=== PATIENT | female | born 1990 | race Caucasian/White ===

== ENCOUNTER → 2018-05-31 12:34 | Observation (INO) ==
[2018-05-31 05:22] LABS: Amphetamine Screen,Urine Negative ng/mL (Cutoff=1000); Barbiturate Screen,Urine Negative ng/mL (Cutoff=200); Benzodiazepines Screen,Urine Negative ng/mL (Cutoff=200); Cannabinoid Screen,Urine Negative ng/mL (Cutoff = 50); Cocaine Screen,Urine Negative ng/mL (Cutoff= 300); Opiate Screen,Urine Negative ng/mL (Cutoff=300); Phencyclidine Screen,Urine Negative ng/mL (Cutoff=25)
--- NOTE | 2018-05-31 07:03 | OB/GYN Progress Note ---
Date of Encounter: 05/31/18 Time of Encounter: 07:01 - Assessment and Plan (1) False labor Current Visit: Yes Status: Acute SVE 2-3cm and unchanged x3 exams. Pt has had 1 liter LR. Will proceed with a second liter bolus. Plan for discharge home once contractions more tolerable. (2) 36 weeks gestation of Current Visit: Yes Status: Acute Subjective - Subjective Interval history: 27 year-old G1 presenting at 36 weeks gestation with c/o contractions that started around midnight. Upon arrival the contractions were every 1-2 minutes and her pain was an 8/10. She has since received Nubain and reports pain 4/10 with contractions. No leaking or bleeding. She doesn't feel like the contractions are less frequent but the appear less frequent on toco. SVE 2-3cm x3 exams. Antepartum ROS: movement normal, contractions, no loss of fluid, no vaginal bleeding Objective - Vital Signs Vital Signs: Intake and Output 05/30/18 05/30/18 05/31/18 15:59 23:59 07:59 Other: Weight 52.39 kg Patient Weight 05/31/18 23:59 Weight 52.39 kg - Exam FHR: category 1 FHR comments: 135 BPM reactive NST Auscultation: bilateral: normal Abdomen: Present: soft, gravid Cervical dilation: 2-3 per RN Cervix effacement: 80 station: -1
[2018-05-31 07:31] LABS: Bilirubin,Urine Negative (Negative); Blood,Urine Negative (Negative); Color,Urine Yellow (Yellow); Glucose,Urine (UA) Normal (Normal); Ketones,Urine 15 mg/dL (Negative); Leukocyte Esterase,Urine Negative (Negative); Nitrite,Urine Negative (Negative); Protein,Urine Negative (Neg-Trace); Specific Gravity,Urine 1.017 (1.010-1.025); Urobilinogen,Urine Normal (Normal)
[2018-05-31 07:49] LABS: Clarity,Urine Clear (Clear)
--- NOTE | 2018-05-31 10:00 | OB/GYN Progress Note ---
Date of Encounter: 05/31/18 Time of Encounter: 09:57 - Assessment and Plan (1) First in adolescent 16 years of age or older in third trimester Current Visit: Yes Status: Acute (2) labor in second trimester with delivery in third trimester Current Visit: Yes Status: Acute Patient will be given Procardia 10 mg 1 now. Observed if no further change will be discharged home Qualifiers: Fetus number: single or unspecified fetus Qualified Code(s): O60.13X0 - labor second trimester with delivery third trimester, not applicable or unspecified (3) Candidiasis of female genitalia Current Visit: Yes Status: Acute Prescription for Terconazole 7 will be given to the patient (4) 36 weeks gestation of Current Visit: Yes Status: Acute Subjective - Subjective Interval history: Patient is still having pain and allan every 2-3 minutes. She is exhausted has not slept in 2-3 days and is shaking from the exhaustion patient did not call the office to be reevaluated did not really know what was going on. Patient was 2-3 cm on admission she was reexamined is still 2-3 cm when we did a pelvic exam she is very tender to palpation speculum exam was performed the patient did have a thick white discharge that was noted wet mount performed did show candidiasis. Because she has not made any additional cervical change I recommended Procardia 10 mg 1 now giving her a Vicodin 5 mg prior to discharge for the pain and a prescription for 2, soft 7 cream patient be observed for another hour if no change noted will discharge home at that time. Antepartum ROS: contractions Objective - Vital Signs Vital Signs: Intake and Output 05/30/18 05/31/18 05/31/18 23:59 07:59 15:59 Other: Weight 52.39 kg Patient Weight 05/31/18 23:59 Weight 52.39 kg - Exam FHR: category 1 FHR comments: heart tones 140s reactive contractions every 2-3 minutes irregular Abdomen: Present: soft, gravid Uterus: Present: firm Cervical dilation: 2-3 Cervix effacement: 80 station: -2 Comments: Sterile speculum exam performed and the patient did reveal a thick white discharge positive for candidiasis on wet mount - Labs Labs: Abnormal lab results Urine Ketones 15 mg/dL (Negative) H 05/31/18 07:17
--- NOTE | 2018-05-31 12:11 | Event Note ---
Date of Encounter: 05/31/18 Time of Encounter: 12:09 Patient requesting evaluation prior to discharge. No change noted from Dr Whiteside's note. She states she is flushed and cramping. Flushing likely related to procardia - vitals WNL. Reactive NST. Cramping likely r/t yeast infection and multiple vaginal exams. Discussed potential for spotting after multiple exams. Zofran and [place] to be given prior to discharge - FOB present to drive. Patient to follow up in office with routine care as scheduled and PRN. POC per consult with Dr Whiteside.
[~2018-05-31 12:34] MED LIST: *HR* HYDROcodone/Acet 5/325 mg TABLET PO ONE; *HR* Nalbuphine 10 MG/ML AMPUL IV PRN; NIFEdipine 10 MG CAPSULE PO ONE; Ondansetron 4 MG/2 ML VIAL IVP ONE; Ondansetron 4 MG/2 ML VIAL ONE; Ringers Solution, Lactated 1,000 ML IVC ONE; Ringers Solution, Lactated 1,000 ML ONE
== END | disposition home or self-care (01) ==
LOC: 1NENULAB
PROVIDERS: ADMIT Registered Nurse; ATTEND Registered Nurse

== ENCOUNTER 2018-06-24 07:54 | Inpatient (IN) ==
--- NOTE | 2018-06-24 08:09 | OB/GYN History & Physical ---
Date of Encounter: 06/24/18 Time of Encounter: 08:06 Assessment and Plan (1) 39 weeks gestation of Current visit: Yes Status: Acute (2) Encounter for elective induction of labor Current visit: Yes Status: Acute will induce with cytotec po (3) First in adolescent 16 years of age or older in third trimester Current visit: No Status: Acute History of Present Illness HPI: Ms. Rodrigues is a 27 year old female 1 para 0 at 39-3/7 weeks by an 8- 4/7 week ultrasound who presented for induction of labor secondary to term with favorable cervix. Patient was 3 cm 0 station in the office last week has been having contractions on and off now for the past 2-3 weeks did advise when she got into the 39 week range we could go ahead and bring her in for an induction. She has been having occasional contractions nothing like she was having 3 weeks ago but she still feeling them. Denies any leaking of fluid no vaginal bleeding no vaginal discharge. Patient had an ultrasound 3 weeks ago baby weighed 2936 g and MARINE was 15 cm. Patient is GBS negative, A+, rubella positive, Varicella positive Past Med Surg Social Fam HX - Past Medical History Source: patient, old records reviewed Medical history: no medical history Psychiatric history: no psych history - Past Surgical History Additional surgical history: left breast biopsy - Social History Smoking Status: Never smoker Smokeless Tobacco Status: No Alcohol use: none Drug use: none Occupational status: employed Current living situation: Home - Independent Activity Level: Independent ambulation Recent Out of Country Travel Within the Last 8 Weeks: No Exposure or Possible Exposure to Illness During Travel: No - Family History Sister Adopted: No Family Member Ethnicity: Non- Living Status: Still Living Hx Family Cardiac Disorders: No Hx Family Respiratory Disorders: No Hx Family Cancer: No Hx Family GI Disorders: No Hx Family Endocrine Disorder: No Hx Family Neuromuscular Disorders: No Hx Family Neurologic Disorders: No Hx Family HEENT Disorders: No Hx Family Autoimmune Disorders: No - Additional Family History Additional family history: Family history noncontributory at this time Obstetrical History - Pregnancies : 1 Para: 0 Medications and Allergies Vit #108/Iron/FA [ One Tablet] 1 each PO DAILY 06/01/17 [History] Unisom 11/25/17 [History] Vit B6/Me-Thfolate/Me-B12/Ala 11/25/17 [History] Allergy/AdvReac Type Severity Reaction Status Date / Time Amoxicillin [From Amoxil] Allergy Hives Verified 05/31/18 04:42 Review of System OB All systems PM: reviewed and no additional remarkable complaints except as stated Exam - Constitutional Constitutional: well developed, well nourished, no acute distress, thin - HEENT HEENT: EOMI, PERRL, Mucus Membranes Moist - Neck Neck exam: full ROM - Lungs Respiratory exam: CTAB - Cardiovascular Cardiovascular exam: RRR - Abdomen Abdomen: Present: bowel sounds normal, gravid ( heart tones 140s reactive occasional contractions seen) - Extremities Extremities exam: normal capillary refill - Vagina Vagina: Present: normal moisture - Cervix Dilation: 3 Effacement: 90 Station: 0 Results All other labs normal.
[2018-06-24] MEDS ORDERED: Naloxone 0.4 MG/ML INJ IVP PRN (08:16)
[2018-06-24] MEDS ORDERED: *HR* Nalbuphine 10 MG/ML AMPUL IVP PRN (08:16)
[2018-06-24] MEDS ORDERED: Ondansetron 4 MG/2 ML VIAL IVP PRN (08:16)
[2018-06-24] MEDS ORDERED: Famotidine 20 MG/2 ML VIAL IVP PRN (08:16)
[2018-06-24] MEDS ORDERED: miSOPROStol 25 MCG TABLET PO PRN (08:20)
[2018-06-24] MEDS ORDERED: Ringers Solution, Lactated 1,000 ML IVC SCH (08:30)
[2018-06-24 09:00] LABS: Basophils # 0.1 K/mcL (0.0-0.2); Basophils % 0.6 %; Eosinophils # 0.1 K/mcL (0.0-0.6); Hematocrit 34.5 % (35.3-44.9); Hemoglobin 11.3 g/dL (11.5-15.4); Immature Granulocytes % 0.7 % (0-4); Lymphocytes # 1.8 K/mcL (0.6-4.6); Lymphocytes % 20.3 %; Mean Corpuscular HGB Conc 32.8 g/dL (31.6-35.5); Mean Corpuscular Hemoglobin 29.4 pg (28.0-33.3); Mean Corpuscular Volume 89.8 fL (83.0-100.0); Monocytes # 0.7 K/mcL (0.0-1.3); Monocytes % 7.3 %; Neutrophils # 6.2 K/mcL (1.6-8.9); Platelet Count 227 K/mcL (140-400); Red Blood Count 3.84 M/mcL (3.82-4.97); Red Cell Distribution Width 13.3 % (11.5-14.5); Segmented Neutrophils % 70.1 %
[2018-06-24 09:04] LABS: Amphetamine Screen,Urine Negative ng/mL (Cutoff=1000); Barbiturate Screen,Urine Negative ng/mL (Cutoff=200); Benzodiazepines Screen,Urine Negative ng/mL (Cutoff=200); Cannabinoid Screen,Urine Negative ng/mL (Cutoff = 50); Cocaine Screen,Urine Negative ng/mL (Cutoff= 300); Opiate Screen,Urine Negative ng/mL (Cutoff=300); Phencyclidine Screen,Urine Negative ng/mL (Cutoff=25)
[2018-06-24] MEDS ORDERED: *HR* FentaNYL (PF) 100 MCG/2 ML VIAL EP ONE (09:35)
[2018-06-24] MEDS ORDERED: Bupivacaine-MPF 0.25% 10 ML VIAL EP ONE (09:35)
--- NOTE | 2018-06-24 09:35 | Anesthesia Evaluation PreOp ---
Addendum entered and electronically signed by Blue Juárez CRNA 06/25/18 01:47: Notified by L&D staff around 0050 of need for secondary to arrest of descent. ADÁN has been providing adequate labor analgesia. Explained to patient R/B/A of epidural anesthesia (plan A) vs. GA (plan B) and all questions answered. Patient verbalizes understanding and agrees to proceed. Confirmed NPO solids > 8hrs. VSS. Original Note: Date of Encounter: 06/24/18 Time of Encounter: 09:33 - Past History Planned Operation: ADÁN Cardiac History: Denies any Significant Hx Pulmonary History: Denies Any Significant HX LACROSSE COACH History: Denies Any Significant HX Other Medical History: Other (sciatica--chronic lower back pain w/ radiculopathy to BLEs) Anesthesia History: No Prior Anesthetic Complications (never had NA or GA; denies family h/o GA complications) : Yes Alcohol Use: none Drug use: none Medications and Allergies Vit #108/Iron/FA [ One Tablet] 1 each PO DAILY 06/01/17 [History] Unisom 11/25/17 [History] Vit B6/Me-Thfolate/Me-B12/Ala 11/25/17 [History] Allergy/AdvReac Type Severity Reaction Status Date / Time Amoxicillin [From Amoxil] Allergy Hives Verified 05/31/18 04:42 - Meds/Allergy Pre-op Review Medications Reviewed: Yes Allergies Reviewed: Yes Beta Blockers on Current Med List: No Anesthesia Results - Labs 06/24/18 08:36 Anesthesia Exam 138/86, HR 85 O2 Sat Height 1.6 m Height 1.6 m Weight 55.792 kg Weight 55.792 kg NPO (# of Hours): solids >3 hr Pain Scale: 0 Pain Scale Used: Numeric (1 - 10) - HEENT Pupil (Motor): Pupils equal Mallampati: II Teeth: Normal Oral Opening: Greater than 3 - LACROSSE COACH LOC: Oriented LACROSSE COACH Motor: Normal RUE, Normal LUE, Normal RLE, Normal LLE, Normal Face LACROSSE COACH Sensory: Normal: RUE, LUE, RLE, LLE, Face - Cardiac Rhythm: Regular Murmur: None - Pulmonary Breath Sounds: bilateral Clear Respiratory Effort: Symmetrical Anesthesia Assess/Plan ASA Score: 2 Level of consciousness: Cooperative, Oriented, Tranquil Anesthetic Plan: Epidural Autologous Blood: No Monitoring Plan: Standard Monitors Recovery Plan: Other
[2018-06-24] MEDS ORDERED: Lidocaine -MPF 1% 5 ML AMPUL ONE (09:39)
[2018-06-24] MEDS ORDERED: Epidural Premix (fent/bupiv) 110 ML EP SCH (09:45)
--- NOTE | 2018-06-24 14:27 | OB Labor Progress Note ---
Date of Encounter: 06/24/18 Time of Encounter: 14:26 Labor Progress Note - Subjective Subjective: Patient is getting uncomfortable recommending epidural - Cervix Cervix: 3/90/0 +1 buldging membranes - Heart Tones Heart Tones: heart tones 140s reactive - [place]: Contractions every 2 minutes - Interventions Interventions: we will get epidural the AROM
--- NOTE | 2018-06-24 15:31 | Anesthesia Procedures ---
Addendum entered and electronically signed by Blue Juárez CRNA 06/25/18 01:52: Infant Delivery Date & Time: 06/25/2018 @0135 Original Note: Date of Encounter: 06/24/18 Time of Encounter: 15:26 Procedures: Anesthesia - Epidural/Spinal Patient ID/Chart reviewed: Yes Patient examined: Yes OB Eval: Gestational age: 39 weeks 3 days OB Eval: : 1 OB Eval: Hx Para: 0 OB Eval: Contractions: Non-stressed pattern Consent Obtained: Yes Supplemental Oxygen: None/Room Air Site Prep: Aseptic Technique, Sterile prep and drape, Povidone-Iodine 1% Patient position: upright Local Anesthetic: Lidocaine 1% Amount of Local Anesthetic used: 3 Touhy Needle Gauge: 18 Touhy Needle Depth (cm): 4 Catheter Depth at Skin (cm): 9 Test Dose (1.5% Lido + Epi): Volume given (mls): 5 Test Dose Result: Negative Loading Dose: 0.25% Marcaine (mls): 5 Loading Dose: Fentanyl (mcg): 100 Loading Dose Administered: Thru Catheter Infusion Med: 0.125% Bupivacaine w/ 2 mcg/ml Fentanyl Infusion Rate (mls/hr): 12 (w/ demand bolus of 4mL q20min PRN) Catheter Secured in Place: Tegaderm, Tape Interspace Used: L4-L5 Loss of Resistance (ALBERT): Yes Blood: No CSF: No Paresthesia: No Procedure: successful on 1st attempt; patient very anxious during procedure; VSS Vitals + FHT's: see Monica LAGUERRE's electronic records for VS entry
--- NOTE | 2018-06-24 16:33 | OB Labor Progress Note ---
Date of Encounter: 06/24/18 Time of Encounter: 16:31 Labor Progress Note - Subjective Subjective: comfortable with epidural - Cervix Cervix: 4/80/-2 - Heart Tones Heart Tones: 130/minimal/-accels/-decels - [place]: q1-2 - Interventions Interventions: AROM for small amount of clear fluid - Plan Physician notified: No
--- NOTE | 2018-06-24 17:34 | OB Labor Progress Note ---
Date of Encounter: 06/24/18 Time of Encounter: 17:29 Labor Progress Note - Subjective Subjective: Patient still comfortable with her epidural - Cervix Cervix: 5/90-100/+1 - Heart Tones Heart Tones: heart tones 140s reactive - Demorest Demorest: IUPC placed contractions every 2 min. - Interventions Interventions: continue current care anticipate
[2018-06-24] MEDS ORDERED: Oxytocin 20 units/ LR 1000 mL 20 UNIT/1,000 ML BAG IVC ONE (19:43)
--- NOTE | 2018-06-24 19:48 | OB Labor Progress Note ---
Date of Encounter: 06/24/18 Time of Encounter: 19:47 Labor Progress Note - Subjective Subjective: Patient doing well epidural still working well - Cervix Cervix: 8/100/+2 - Heart Tones Heart Tones: heart tones 140s reactive - [place]: Contractions every 1-2 minutes - Interventions Interventions: Continue current care and anticipate vaginal delivery
--- NOTE | 2018-06-25 01:02 | OB Labor Progress Note ---
Date of Encounter: 06/25/18 Time of Encounter: 01:00 Labor Progress Note - Subjective Subjective: Patient has been pushing for approximately an hour and a half and head is not descending. There is significant amount of caput to the baby and significant amount of edema to the vaginal tissue. I did evaluate the patient and work with the patient I feel she is not a candidate for vacuum and I have highly recommended taking him back for primary low transverse section. - Cervix Cervix: complete/100/+2 significant caput noted - Heart Tones Heart Tones: Heart tones 140s reactive with variable decelerations occasionally with the contractions - [place]: Contractions every 2 minutes - Interventions Interventions: Consent has been signed for a section patient will be taken back as soon as possible
[2018-06-25] MEDS ORDERED: Clindamycin 900 MG/50 ML 900 MG/50 ML IV.SOLN IVPB ONE (01:03)
[2018-06-25] MEDS ORDERED: Lidocaine/EPI 1:200k 2% PF 20 ML VIAL ONE (01:04)
[2018-06-25] MEDS ORDERED: *HR* FentaNYL (PF) 100 MCG/2 ML VIAL ONE (01:05)
--- NOTE | 2018-06-25 01:10 | OB/GYN Procedure Note ---
Section - Date of procedure: 06/25/18 Preop diagnosis: other (Intrauterine at 39-3/7 weeks, arrest of descent, cephalopelvic disproportion) Post-op diagnosis: same (With persistent occiput posterior presentation) Procedure: primary low transverse Surgeon: Kalen Whiteside Quantitated Blood Loss: 500 Was there an hotel assistant general manager present: No Anesthesiologist: Blue Juárez Footwear Sales Representative: Margarito Cheney Anesthesia Type: Epidural section complications: none Disposition: L&D Recovery Room - (s) A Delivery Date: 06/25/18 Delivery Time: 01:35 Presentation: vertex Position: ROP Route of delivery: other ( section) Gender: Male Viability: Viable Pounds: 6 Ounces: 15 Gram Weight: 3.135 kg at 1 minute: 8 at 5 minutes: 9 Shoulder Dystocia: not encountered Specimens collected: cord blood Placenta: spontaneous - Narrative Narrative: Patient is a 27-year-old 1 para 0 at 39-3/7 weeks who presented for induction of labor secondary to term with favorable cervix. Patient has been 2-3 cm and head was at 0 station for the past 2-3 weeks recommended bring the patient in and inducing her. Patient did get Cytotec by mouth when she was allan epidural was placed she was artificially ruptured for clear fluid noted. Patient did progress to complete patient push for approximately 90 minutes without any significant descent of the head. She remained at the +2 station with significant amount of It formation on the baby and vaginal edema. I did not feel she was a candidate for vacuum assisted delivery and section was called. Procedure: Patient was taken the operating room where epidural anesthesia was found be adequate. She first the dorsal supine position with a leftward tilt prepped and draped in usual fashion. Timeout was then obtained. Pfannenstiel incision was made with a scalpel and carried down to the underlying tissue to the fascia was then applied. The fascia was nicked in midline extended laterally with Moreira scissors. The superior and inferior edges of the fascia grasped tented up and dissected rectus muscles. Rectus muscles were in midline parietal peritoneum was identified tented up and entered sharply. This was extended superiorly and inferiorly with Metzenbaum scissors. The bladder blade was inserted the vesicouterine peritoneum was identified tented up and entered sharply. This was extended laterally the bladder flap was created digitally. The lower uterine segment was incised with a scalpel and extended laterally digitally ablation. The 's head was noted to be in ROP presentation, I disengaged the head out of the pelvis and it was brought up through the incision then We delivered the infant, the cord was clamp and cut and was handed off to waiting pediatric team. Cord blood was collected placenta was then delivered continuously 3 vessel cord. Uterus was exteriorized cleaned of all clots and debris. The lower uterine segment was then closed using an 0 Vicryl in a running locking stitch by a 2 layer closure. Good hemostasis was noted the uterus was returned to the abdomen the gutters were cleaned of all clots and debris then copiously irrigated. No active bleeding was noted the fascia was closed using a #1 stratafix in a running stitch and the skin was closed using a 4-0 Vicryl in a subcuticular manner. All needles lap sponge counts were correct 3 she did receive preoperative antibiotics and a PRINEO dressing was applied at the end of the case. Patient tolerated the procedure well she was taken to the recovery room where she will be observed for 2 hrs before being taken to the floor
[2018-06-25] MEDS ORDERED: *HR* Oxytocin 10 UNIT/ML VIAL IM ONE (01:39)
[2018-06-25] MEDS ORDERED: *HR* Morphine 10 MG/ML VIAL ONE (01:40)
[2018-06-25] MEDS ORDERED: *HR* Morphine Sulfate/PF 10 MG/10 ML AMPUL ONE (01:41)
--- NOTE | 2018-06-25 01:47 | Anesthesia Progress Note ---
Date of Encounter: 06/25/18 Time of Encounter: 01:44
[2018-06-25] MEDS ORDERED: Naloxone 0.4 MG/ML INJ IVP PRN ×2 (02:08→04:37)
[2018-06-25] MEDS ORDERED: *HR* Promethazine 25 MG/ML VIAL IVP PRN (02:08)
[2018-06-25] MEDS ORDERED: Acetaminophen IV 1,000 MG/100 ML INFUS..BTL IVPB ONE (02:08)
[2018-06-25] MEDS ORDERED: Ondansetron 4 MG/2 ML VIAL IVP PRN ×2 (02:08→04:37)
--- NOTE | 2018-06-25 03:41 | Anesthesia Evaluation Post Op ---
Date of Encounter: 06/25/18 Time of Encounter: 03:39 - Vital Signs Vital Signs: 122/83, HR 100, RR14 - Lungs Lungs: Clear Ascult./Percussion - Airway Airway: Non-obstructed - Cardiovascular Regular Rate - Mental Status Mental Status: Alert & Oriented, Answers Appropriately - Pain Pain Scale: 0 Pain Scale used: Numeric (1 - 10) - Nausea Vomiting Nausea Vomiting: Not Present - Hydration Hydration: NPO, Kirby catheter - Discharge PostOp Status: Transfer Patient to floor
[2018-06-25] MEDS ORDERED: Ringers Solution, Lactated 1,000 ML IVC SCH (04:37)
[2018-06-25] MEDS ORDERED: Oxytocin 20 units/ LR 1000 mL 20 UNIT/1,000 ML BAG IVC SCH ×2 (04:37)
[2018-06-25] MEDS ORDERED: Sennosides 8.6 MG TABLET PO PRN (04:37)
[2018-06-25] MEDS ORDERED: Metoclopramide 10 MG/2 ML VIAL IVP PRN (04:37)
[2018-06-25] MEDS ORDERED: Simethicone 80 MG TAB.CHEW PO PRN (04:37)
[2018-06-25] MEDS: *HR* OxyCODONE/APAP 10/325 TABLET PO PRN (04:52)
[2018-06-25] MEDS: Ibuprofen 600 MG TABLET PO PRN ×3 (07:09→21:42)
[2018-06-25] MEDS ORDERED: IRON PO SCH (09:00)
[2018-06-25] MEDS ORDERED: PRENATAL VIT PO SCH (09:00)
[2018-06-25] MEDS ORDERED: [UNRECOGNIZED DRUG - OTHER] PO SCH (09:00)
[2018-06-25] MEDS: *HR* OxyCODONE/APAP 5/325 TABLET PO PRN ×2 (12:15→20:08)
[2018-06-26] MEDS: Ibuprofen 600 MG TABLET PO PRN ×3 (06:48→21:03)
[2018-06-26] MEDS: *HR* OxyCODONE/APAP 5/325 TABLET PO PRN (06:48)
[2018-06-26 07:49] LABS: Basophils # 0.1 K/mcL (0.0-0.2); Basophils % 0.3 %; Eosinophils # 0.1 K/mcL (0.0-0.6); Eosinophils % 0.6 %; Hematocrit 31.2 % (35.3-44.9); Hemoglobin 10.2 g/dL (11.5-15.4); Immature Granulocytes % 0.7 % (0-4); Lymphocytes # 1.6 K/mcL (0.6-4.6); Lymphocytes % 10.3 %; Mean Corpuscular HGB Conc 32.7 g/dL (31.6-35.5); Mean Corpuscular Hemoglobin 29.7 pg (28.0-33.3); Mean Corpuscular Volume 90.7 fL (83.0-100.0); Mean Platelet Volume 11.1 fL (9.4-12.4); Monocytes # 0.8 K/mcL (0.0-1.3); Platelet Count 233 K/mcL (140-400); Red Blood Count 3.44 M/mcL (3.82-4.97); Red Cell Distribution Width 13.7 % (11.5-14.5); Segmented Neutrophils % 83.1 %
[2018-06-26 07:53] LABS: Neutrophils # 12.6 K/mcL (1.6-8.9)
[2018-06-26] MEDS: Prenatal Vit/FA 1 EACH TABLET PO SCH (09:00)
[2018-06-26] MEDS ORDERED: Hydrocortisone 1% OINT 28 GM TUBE TP PRN (10:26)
--- NOTE | 2018-06-26 10:30 | OB/GYN Progress Note ---
Date of Encounter: 06/26/18 Time of Encounter: 10:28 - Assessment and Plan (1) S/P section Current Visit: Yes Status: Acute Hydrocortisone for itchy rash on abdomen. Ambulate in hallway today. Anticipate discharge home POD2-3. Subjective - Subjective Interval history: Pt reports incisional pain well controlled with PO medications. She reports itching on her abdomen. No other complaints. Patient reports: appetite normal, voiding normally, pain well controlled, ambulating normally : doing well Objective - Vital Signs Latest vital signs: Vital Signs Temp Pulse Resp BP Pulse Ox 06/26/18 07:45 98.0 F 94 16 121/90 06/25/18 23:30 97.8 F 88 14 116/77 98 06/25/18 19:45 98.1 F 85 14 134/89 97 06/25/18 15:22 97.8 F 90 16 124/85 06/25/18 13:26 82 16 113/80 06/25/18 12:00 98.1 F 86 18 155/90 Intake and Output 06/25/18 06/26/18 06/26/18 23:59 07:59 15:59 Intake Total 500 / 500 600 / 600 Output Total 600 / 600 1300 / 1300 200 / 200 Balance -100 / -100 -700 / -700 -200 / -200 Intake: Oral 500 / 500 600 / 600 Output: Urine 600 / 600 1300 / 1300 200 / 200 Other: Meal Dinner Percent of Meal Consumed 50% - Exam Lungs: bilateral: normal Chest: Normal S1 Extremities: Present: normal Abdomen: Present: soft Incision: Present: intact Uterus: Present: firm Fundal Height: 1 (U/1) Comments: rash on abdomen - Labs Labs: Laboratory Results - last 24 hr 06/26/18 07:26 WBC 15.2 H D RBC 3.44 L Hgb 10.2 L Hct 31.2 L MCV 90.7 MCH 29.7 MCHC 32.7 RDW 13.7 Plt Count 233 MPV 11.1 Immature Gran % 0.7 Seg Neutrophils % 83.1 Lymphocytes % 10.3 Monocytes % 5.0 Eosinophils % 0.6 Basophils % 0.3 Neutrophils # 12.6 H Lymphocytes # 1.6 Monocytes # 0.8 Eosinophils # 0.1 Basophils # 0.1
[2018-06-26] MEDS: *HR* OxyCODONE/APAP 10/325 TABLET PO PRN ×2 (12:04→19:11)
[2018-06-27] MEDS ORDERED: hydrOXYzine pamoate 25 MG CAPSULE PO ONE (02:52)
[2018-06-27] MEDS: Ibuprofen 600 MG TABLET PO PRN ×2 (03:08→09:06)
[2018-06-27 07:50] VITALS: BP 120/84
[2018-06-27] MEDS: Prenatal Vit/FA 1 EACH TABLET PO SCH (09:05)
--- NOTE | 2018-06-27 09:24 | Discharge Summary ---
Date of Encounter: 06/27/18 Time of Encounter: 09:18 ( ) - Discharge Diagnosis (1) S/P section Priority: Primary Status: Acute Comments: Patient meeting day one milestones. Pain well-controlled with prescribed medications. Voiding without difficulty, tolerating regular diet. No bowel movement yet, lochia light. Patient is very sleepy this morning due to being given Vistaril early this morning for some anxiety symptoms. Anticipate discharge today - Discharge Medications Prescriptions: Ferrous Sulfate 325 mg PO DAILY #30 tablet Ibuprofen [Motrin] 600 mg PO Q6H PRN #60 tablet PRN Reason: Cramping OxyCODONE/APAP 5/325 [Percocet 5/325 MG] 1 each PO Q6H PRN 7 Days #28 tablet PRN Reason: Moderate pain 4-6 Home Medications: Vit #108/Iron/FA [ One Tablet] 1 each PO DAILY 06/01/17 [History] Docusate [Colace] 100 mg PO BID capsule 06/27/18 [Rx] Ferrous Sulfate 325 mg PO DAILY #30 tablet 06/27/18 [Rx] Ibuprofen [Motrin] 600 mg PO Q6H PRN #60 tablet 06/27/18 [Rx] OxyCODONE/APAP 5/325 [Percocet 5/325 MG] 1 each PO Q6H PRN 7 Days #28 tablet 06/27/18 [Rx] Simethicone [Gas-X] 80 mg PO TID PRN tab.chew 06/27/18 [Rx] Allergies/Adverse Reactions: Allergy/AdvReac Type Severity Reaction Status Date / Time Amoxicillin [From Amoxil] Allergy Hives Verified 05/31/18 04:42 Data Procedures and tests throughout hospitalization: Laboratory Tests 06/24/18 06/24/18 06/26/18 08:36 08:36 07:26 WBC 8.9 15.2 H D RBC 3.84 3.44 L Hgb 11.3 L 10.2 L Hct 34.5 L 31.2 L MCV 89.8 90.7 MCH 29.4 29.7 MCHC 32.8 32.7 RDW 13.3 13.7 Plt Count 227 233 MPV 12.0 11.1 Immature Gran % 0.7 0.7 Seg Neutrophils % 70.1 83.1 Lymphocytes % 20.3 10.3 Monocytes % 7.3 5.0 Eosinophils % 1.0 0.6 Basophils % 0.6 0.3 Neutrophils # 6.2 12.6 H Lymphocytes # 1.8 1.6 Monocytes # 0.7 0.8 Eosinophils # 0.1 0.1 Basophils # 0.1 0.1 Urine Opiates Screen Negative Ur Barbiturates Screen Negative Ur Phencyclidine Scrn Negative Ur Amphetamines Screen Negative U Benzodiazepines Scrn Negative Urine Cocaine Screen Negative U Marijuana (THC) Screen Negative Ur Drug Screen Interp See Below Date of admission: 06/24/18 07:54 Primary care physician: Adalberto Soto MD Discharging clinician: Santa Gandara Anticipated date of discharge: 06/27/18 - Patient Status Disposition: Home, Self-Care Condition: Good Functional capacity at discharge: independent ambulation Overall status at discharge: patient is progressing back to baseline - Discharge Instructions Follow Up With: Adalberto Soto MD [Primary Care Provider] - - Diet and Activity Diet: regular diet Hospital Course Reason for admission: induction of labor Delivery: section Episiotomy: none Laceration: none Other procedures: none complications: none Discharge diagnosis: IUP at term delivered [place] baby: male Hospital course: Date of procedure: 06/25/18 Preop diagnosis: other (Intrauterine at 39-3/7 weeks, arrest of descent, cephalopelvic disproportion) Post-op diagnosis: same (With persistent occiput posterior presentation) Procedure: primary low transverse Surgeon: Kalen Whiteside Quantitated Blood Loss: 500 Was there an paraprofessional education assistant present: No Anesthesiologist: Blue Juárez Creative Writing Professor: Margarito Cheney Anesthesia Type: Epidural section complications: none Disposition: L&D Recovery Room - (s) A Infant Delivery Date: 06/25/18 Delivery Time: 01:35 Presentation: vertex Position: ROP Route of delivery: other ( section) Gender: Male Viability: Viable Pounds: 6 Ounces: 15 Gram Weight: 3.135 kg at 1 minute: 8 at 5 minutes: 9 Shoulder Dystocia: not encountered Specimens collected: cord blood Placenta: spontaneous - Narrative Narrative: Patient is a 27-year-old 1 para 0 at 39-3/7 weeks who presented for induction of labor secondary to term with favorable cervix. Patient has been 2-3 cm and head was at 0 station for the past 2-3 weeks recommended bring the patient in and inducing her. Patient did get Cytotec by mouth when she was allan epidural was placed she was artificially ruptured for clear fluid noted. Patient did progress to complete patient push for approximately 90 minutes without any significant descent of the head. She remained at the +2 station with significant amount of It formation on the baby and vaginal edema. I did not feel she was a candidate for vacuum assisted delivery and section was called. Procedure: Patient was taken the operating room where epidural anesthesia was found be adequate. She first the dorsal supine position with a leftward tilt prepped and draped in usual fashion. Timeout was then obtained. Pfannenstiel incision was made with a scalpel and carried down to the underlying tissue to the fascia was then applied. The fascia was nicked in midline extended late rally with Moreira scissors. The superior and inferior edges of the fascia grasped tented up and dissected rectus muscles. Rectus muscles were in midline parietal peritoneum was identified tented up and entered sharply. This was extended superiorly and inferiorly with Metzenbaum scissors. The bladder blade was inserted the vesicouterine peritoneum was identified tented up and entered sharply. This was extended laterally the bladder flap was created digitally. The lower uterine segment was incised with a scalpel and extended laterally digitally ablation. The infant's head was noted to be in ROP presentation, I disengaged the head out of the pelvis and it was brought up through the incision then We delivered the infant, the cord was clamp and cut and was handed off to waiting pediatric team. Cord blood was collected placenta was then delivered continuously 3 vessel cord. Uterus was exteriorized cleaned of all clots and debris. The lower uterine segment was then closed using an 0 Vicryl in a running locking stitch by a 2 layer closure. Good hemostasis was noted the uterus was returned to the abdomen the gutters were cleaned of all clots and debris then copiously irrigated. No active bleeding was noted the fascia was closed using a #1 stratafix in a running stitch and the skin was closed using a 4-0 Vicryl in a subcuticular manner. All needles lap sponge counts were correct 3 she did receive preoperative antibiotics and a PRINEO dressing was applied at the end of the case. Patient tolerated the procedure well she was taken to the recovery room where she will be observed for 2 hrs before being taken to the floor Time Attestation: Total time spent providing and/or coordinating discharge services: Time Spent: Less than 30 minutes - VTE Reasons for not Prescribing Prophylaxis: Treatment not Indicated - Low risk for VTE Documentation of Mechanical Device: Intermittent pneumatic compression device Exam - Constitutional Vitals: Temp Pulse Resp BP Pulse Ox 98 F 81 12 120/84 97 06/27/18 07:35 06/27/18 07:35 06/27/18 07:35 06/27/18 07:35 06/27/18 07:35 General appearance IM: A&O X 3, pleasant, no acute distress, answers questions appropriately - Respiratory Respiratory exam: Present: CTAB - Cardiovascular Cardiovascular exam IM: Present: RRR, +S1, +S2 - GI/Abdominal GI/Abdominal exam IM: normal bowel sounds, soft Incision: normal, dressed (telfa) - Rectal Rectal exam: deferred - Uterine Tone: Firm Uterus Position: At Umbilicus, Midline - Extremities Exam Extremities exam IM: Present: full ROM, normal capillary refill, normal inspection - Neurological Exam Neurological exam: alert (very sleepy after Vistaril dose early this AM), normal gait, oriented X3
--- NOTE | 2018-06-27 20:44 | Electrocardiograph Report ---
[address] [place], [place] [address] Test Date: 2018-06-27 Pat Name: Danielle Rodrigues Department: 101 Room: [facility] Gender: Electronic Game Developer: SALIMA : 1990 Requested By: Ethel Pena Order Number: [id number] Reading MD: Starr Chambers Measurements Intervals [place] Rate: 94 P: 57 AK: 120 QRS: 50 QRSD: 77 T: 51 QT: 335 QTc: 387 Interpretive Statements SINUS RHYTHM Electronically Signed On 06-27-2018 20:43:13 EST by Starr Chambers
== END 2018-06-27 12:10 | disposition home or self-care (01) | DRG 788 ==
LOC: 1NENULAB 07:54 → 1NENUOBS 06-25 04:43
PROVIDERS: ADMIT Obstetrics & Gynecology; ATTEND Obstetrics & Gynecology

== ENCOUNTER 2020-04-07 17:48 | Observation (INO) ==
[2020-04-07 11:01] LABS: Basophils # 0.1 K/mcL (0.0-0.2); Basophils % 0.6 %; Eosinophils # 0.1 K/mcL (0.0-0.6); Eosinophils % 0.6 %; Hematocrit 34.3 % (35.3-44.9); Hemoglobin 11.3 g/dL (11.5-15.4); Immature Granulocytes % 1.3 % (0-4); Lymphocytes # 0.6 K/mcL (0.6-4.6); Lymphocytes % 6.8 %; Mean Corpuscular HGB Conc 32.9 g/dL (31.6-35.5); Mean Platelet Volume 11.2 fL (9.4-12.4); Monocytes # 0.7 K/mcL (0.0-1.3); Monocytes % 8.2 %; Neutrophils # 6.8 K/mcL (1.6-8.9); Platelet Count 232 K/mcL (140-400); Red Blood Count 3.77 M/mcL (3.82-4.97); Red Cell Distribution Width 13.3 % (11.5-14.5); Segmented Neutrophils % 82.5 %; White Blood Count 8.2 K/mcL (4.3-11.1)
[2020-04-07 11:10] LABS: Protein/Creatinine Ratio,Urine 0.24 mg/mg (0.00-0.20)
[2020-04-07 11:29] LABS: Alanine Aminotransferase 26 Units/L (7-52); Aspartate Amino Transferase 30 Units/L (13-39); BUN/Creatinine Ratio 18 (6-26); Blood Urea Nitrogen 10 mg/dL (6-20); Lactate Dehydrogenase 169 Units/L (140-271); Uric Acid 3.3 mg/dL (2.3-7.6); eGFR For African Americans > 60 (> 60); eGFR For Non-African Americans > 60 (> 60)
[2020-04-07 11:40] LABS: Bilirubin,Urine Negative (Negative); Blood,Urine Negative (Negative); Clarity,Urine Clear (Clear); Color,Urine Light-Yellow (Yellow); Glucose,Urine (UA) Normal (Normal); Ketones,Urine Negative (Negative); Leukocyte Esterase,Urine Negative (Negative); Nitrite,Urine Negative (Negative); Protein,Urine Trace mg/dL (Neg-Trace); Urobilinogen,Urine Normal (Normal)
[2020-04-07 11:53] LABS: Adenovirus Not Detected (Not Detect); Coronavirus 229E Not Detected (Not Detect); Coronavirus HKU1 Not Detected (Not Detect); Coronavirus NL63 Not Detected (Not Detect); Coronavirus OC43 Not Detected (Not Detect)
[2020-04-07 12:00] LABS: Bordetella Pertussis Not Detected (Not Detect); Chlamydophila pneumoniae Not Detected (Not Detect); Human Metapneumovirus Not Detected (Not Detect); Human Rhinovirus/Enterovirus Not Detected (Not Detect); Influenza A Subtype 2009 H1 Not Detected (Not Detect); Influenza B Not Detected (Not Detect); Mycoplasma pneumoniae Not Detected (Not Detect); Parainfluenza Virus 1 Not Detected (Not Detect); Parainfluenza Virus 2 Not Detected (Not Detect); Parainfluenza Virus 3 Not Detected (Not Detect); Parainfluenza Virus 4 Not Detected (Not Detect); Respiratory Syncytial Virus Not Detected (Not Detect); SARS-CoV-2 DETECTED (Not Detect)
[~2020-04-07 17:48] MED LIST changes: -*HR* HYDROcodone/Acet 5/325 mg TABLET PO ONE; -*HR* Nalbuphine 10 MG/ML AMPUL IV PRN; +EPHEDrine 50 MG/ML VIAL IVP PRN; +Epidural Premix (fent/bupiv) 110 ML EP SCH; +Morphine Sulfate 2 MG/ML SYRINGE IVP STA; +Morphine Sulfate 2 MG/ML SYRINGE SQ STA; -NIFEdipine 10 MG CAPSULE PO ONE; -Ondansetron 4 MG/2 ML VIAL IVP ONE; -Ondansetron 4 MG/2 ML VIAL ONE; +Ringers Solution, Lactated 1,000 ML IVC SCH
[2020-04-07] MEDS ORDERED: Acetaminophen 325 MG TABLET PO ONE (19:00)
[2020-04-07] MEDS ORDERED: Ondansetron 4 MG/2 ML VIAL IVP PRN (20:51)
[2020-04-07] MEDS: Acetaminophen IV 1,000 MG/100 ML INFUS..BTL IVPB SCH (23:34)
[2020-04-08 00:08] VITALS: BP 132/80
[2020-04-08] MEDS ORDERED: hydrOXYzine pamoate 25 MG CAPSULE PO ONE (01:35)
[2020-04-08] MEDS: Acetaminophen IV 1,000 MG/100 ML INFUS..BTL IVPB SCH (07:44)
== END 2020-04-08 10:30 | disposition home or self-care (01) ==
LOC: 1NENULAB → 1NENUOBS 17:48
PROVIDERS: ADMIT Obstetrics & Gynecology; ATTEND Obstetrics & Gynecology

== ENCOUNTER 2020-04-20 15:19 | Inpatient (IN) ==
[2020-04-20 15:55] LABS: Bilirubin,Urine Negative (Negative); Blood,Urine Small (Negative); Clarity,Urine Clear (Clear); Color,Urine Light-Yellow (Yellow); Glucose,Urine (UA) Normal (Normal); Ketones,Urine Negative (Negative); Leukocyte Esterase,Urine Negative (Negative); Mucus,Urine Few per lpf (None-Few); Nitrite,Urine Negative (Negative); PH,Urine 6.5 pH Units (5.0-8.0); Protein,Urine Negative (Neg-Trace); Specific Gravity,Urine 1.027 (1.010-1.025); Squamous Epithelial Cell,Urine Few per hpf (None-Few); Urobilinogen,Urine Normal (Normal)
[2020-04-20 16:14] LABS: Basophils # 0.1 K/mcL (0.0-0.2); Basophils % 0.7 %; Eosinophils # 0.1 K/mcL (0.0-0.6); Eosinophils % 0.8 %; Hemoglobin 9.6 g/dL (11.5-15.4); Immature Granulocytes % 3.6 % (0-4); Lymphocytes # 1.9 K/mcL (0.6-4.6); Lymphocytes % 19.7 %; Mean Corpuscular Hemoglobin 28.9 pg (28.0-33.3); Mean Corpuscular Volume 93.4 fL (83.0-100.0); Mean Platelet Volume 9.3 fL (9.4-12.4); Monocytes # 0.4 K/mcL (0.0-1.3); Monocytes % 4.6 %; Neutrophils # 6.7 K/mcL (1.6-8.9); Platelet Count 567 K/mcL (140-400); Red Blood Count 3.32 M/mcL (3.82-4.97); Red Cell Distribution Width 14.2 % (11.5-14.5); Segmented Neutrophils % 70.6 %; White Blood Count 9.4 K/mcL (4.3-11.1)
[2020-04-20] MEDS ORDERED: 0.9 % Sodium Chloride 1,000 ML IV ONE (16:29)
[2020-04-20] MEDS ORDERED: 0.9 % Sodium Chloride 1,000 ML ONE (16:30)
[2020-04-20 16:32] LABS: Alanine Aminotransferase 28 Units/L (7-52); Albumin 3.9 g/dL (3.5-5.7); Albumin/Globulin Ratio 1.1 (1.1-2.2); Alkaline Phosphatase 171 Units/L (34-104); Aspartate Amino Transferase 16 Units/L (13-39); BUN/Creatinine Ratio 23 (6-26); Bilirubin,Total 0.3 mg/dL (0.3-1.0); Blood Urea Nitrogen 16 mg/dL (6-20); Calcium 9.2 mg/dL (8.6-10.3); Carbon Dioxide 25 mEq/L (23-29); Chloride 104 mEq/L (98-107); Globulin 3.4 g/dL (2.4-3.5); Glucose 81 mg/dL (70-105); Osmolality,Calculated 286 (280-300); Potassium 3.9 mEq/L (3.5-5.1); Sodium 138 mEq/L (136-145); Total Protein 7.3 g/dL (6.4-8.9); eGFR For African Americans > 60 (> 60); eGFR For Non-African Americans > 60 (> 60)
[2020-04-20 17:47] LABS: Lactate Dehydrogenase 298 Units/L (140-271)
[2020-04-20 17:51] LABS: INR 1.1; Prothrombin Time 12.9 Seconds (9.4-12.1)
[2020-04-20 17:54] LABS: Activated Partial Thrombo Time 37.9 Seconds (26.0-36.0)
[2020-04-20 21:17] LABS: Adenovirus Not Detected (Not Detect); Bordetella Pertussis Not Detected (Not Detect); Chlamydophila pneumoniae Not Detected (Not Detect); Coronavirus 229E Not Detected (Not Detect); Coronavirus HKU1 Not Detected (Not Detect); Coronavirus NL63 Not Detected (Not Detect); Coronavirus OC43 Not Detected (Not Detect); Human Metapneumovirus Not Detected (Not Detect); Human Rhinovirus/Enterovirus Not Detected (Not Detect); Influenza A Subtype 2009 H1 Not Detected (Not Detect); Influenza B Not Detected (Not Detect); Mycoplasma pneumoniae Not Detected (Not Detect); Parainfluenza Virus 1 Not Detected (Not Detect); Parainfluenza Virus 2 Not Detected (Not Detect); Parainfluenza Virus 3 Not Detected (Not Detect); Parainfluenza Virus 4 Not Detected (Not Detect); Respiratory Syncytial Virus Not Detected (Not Detect)
[2020-04-20 21:19] LABS: SARS-CoV-2 DETECTED (Not Detect)
[2020-04-20] MEDS ORDERED: Sennosides 8.6 MG TABLET PO PRN (21:59)
[2020-04-20] MEDS ORDERED: Simethicone 80 MG TAB.CHEW PO PRN (21:59)
[2020-04-20] MEDS ORDERED: Oxytocin 20 units/ LR 1000 mL 20 UNIT/1,000 ML BAG IVC SCH (21:59)
[2020-04-20] MEDS ORDERED: *HR* OxyCODONE/APAP 5/325 TABLET PO PRN (21:59)
[2020-04-20] MEDS ORDERED: Ondansetron 4 MG/2 ML VIAL IVP PRN (21:59)
[2020-04-20] MEDS ORDERED: Ondansetron ODT 4 MG TAB.RAPDIS SL PRN (21:59)
[2020-04-20] MEDS ORDERED: Metoclopramide 10 MG/2 ML VIAL IVP PRN (21:59)
[2020-04-20] MEDS ORDERED: Rho Immune Globulin 1,500 UNIT SYRINGE IM ONE (21:59)
[2020-04-20] MEDS ORDERED: Calcium Gluconate 1,000 MG/10 ML VIAL IVP PRN (22:46)
[2020-04-20] MEDS ORDERED: Ringers Solution, Lactated 1,000 ML ONE (23:46)
[2020-04-20] MEDS: Magnesium Sulf 20 gm/SW 500mL 20 GM/500 ML IV.SOLN IVC SCH (23:46)
[2020-04-20] MEDS: Acetaminophen/Butalbital/CaffeineTABLET PO PRN (23:47)
[2020-04-20] MEDS: Ringers Solution, Lactated 1,000 ML IVC SCH (23:54)
[2020-04-21 00:47] LABS: Protein/Creatinine Ratio,Urine 0.13 mg/mg (0.00-0.20)
[2020-04-21 05:12] LABS: Basophils # 0.1 K/mcL (0.0-0.2); Basophils % 0.7 %; Eosinophils # 0.1 K/mcL (0.0-0.6); Eosinophils % 1.4 %; Hematocrit 31.4 % (35.3-44.9); Hemoglobin 9.6 g/dL (11.5-15.4); Lymphocytes # 1.6 K/mcL (0.6-4.6); Lymphocytes % 22.3 %; Mean Corpuscular HGB Conc 30.6 g/dL (31.6-35.5); Mean Corpuscular Hemoglobin 28.3 pg (28.0-33.3); Mean Corpuscular Volume 92.6 fL (83.0-100.0); Mean Platelet Volume 9.4 fL (9.4-12.4); Monocytes # 0.5 K/mcL (0.0-1.3); Monocytes % 7.7 %; Neutrophils # 4.6 K/mcL (1.6-8.9); Platelet Count 523 K/mcL (140-400); Red Blood Count 3.39 M/mcL (3.82-4.97); Red Cell Distribution Width 14.1 % (11.5-14.5); Segmented Neutrophils % 64.9 %
[2020-04-21 05:31] LABS: Alanine Aminotransferase 21 Units/L (7-52); Aspartate Amino Transferase 14 Units/L (13-39); BUN/Creatinine Ratio 25 (6-26); Blood Urea Nitrogen 12 mg/dL (6-20); Lactate Dehydrogenase 249 Units/L (140-271); Uric Acid 4.4 mg/dL (2.3-7.6); eGFR For African Americans > 60 (> 60); eGFR For Non-African Americans > 60 (> 60)
[2020-04-21] MEDS: *HR* Enoxaparin 40 MG/0.4 ML SYRINGE SQ SCH (07:53)
[2020-04-21] MEDS: Acetaminophen/Butalbital/CaffeineTABLET PO PRN (07:53)
[2020-04-21] MEDS: Ibuprofen 600 MG TABLET PO PRN (07:54)
[2020-04-21] MEDS: Prenatal Vit/FA 1 EACH TABLET PO SCH (07:54)
[2020-04-21] MEDS: Magnesium Sulf 20 gm/SW 500mL 20 GM/500 ML IV.SOLN IVC SCH ×2 (08:02→16:31)
[2020-04-21] MEDS ORDERED: NON-FORMULARY MEDICATION 1 EACH EACH (Prenatal Vit 108/Iron/Folic Ac [Prenatal One Tablet] PO SCH (09:00)
[2020-04-21] MEDS: Ringers Solution, Lactated 1,000 ML IVC SCH (10:20)
[2020-04-22] MEDS: Ibuprofen 600 MG TABLET PO PRN (06:08)
[2020-04-22] MEDS: *HR* Enoxaparin 40 MG/0.4 ML SYRINGE SQ SCH (08:09)
[2020-04-22] MEDS: Prenatal Vit/FA 1 EACH TABLET PO SCH (08:09)
[2020-04-22 08:32] VITALS: BP 109/73
== END 2020-04-22 10:50 | disposition home or self-care (01) | DRG 776 ==
LOC: EMEROOARM 15:19 → 1NENUOBS 15:19 → OBSVTOIN 18:01 → 1NENUOBS 21:45
PROVIDERS: ADMIT Student in an Organized Health Care Education/Training Program; ATTEND Student in an Organized Health Care Education/Training Program